=== PATIENT | male | born 1970 | race Two or more races ===

== ENCOUNTER 2020-10-16 16:26 | Emergency (ER) | payer OTHER, MEDICAID ==
[~2020-10-16] VITALS: Ht 165.1 cm; Wt 68.7 kg
[2020-10-16 17:04] LABS: ALBUMIN 3.9 g/dL (3.4-5.0); ANION GAP 5 mmol/L (5-15); CALCIUM 8.8 mg/dL (8.5-10.1); CHLORIDE 109 mmol/L (98-107)
[2020-10-16 17:05] LABS: CREATININE 0.84 mg/dL (0.7-1.3)
[2020-10-16 17:26] LABS: BASOPHILS % (AUTO) 1 % (0-1); EOSINOPHILS % (AUTO) 7 % (1-7); LYMPHOCYTES % (AUTO) 29 % (22-44); MEAN CORPUSCULAR HEMOGLOBIN 29.9 pg (27.5-34.5); MEAN CORPUSCULAR HGB CONC 33.6 g/dL (33.2-36.2); MEAN PLATELET VOLUME 7.8 fL (7.4-10.4); MONOCYTES % (AUTO) 7 % (2-9); NEUTROPHILS % (AUTO) 56 % (42-75); PLATELET COUNT 230 x10^3/uL (130-400); RED BLOOD COUNT 5.48 x10^6/uL (4.38-5.82); RED CELL DISTRIBUTION WIDTH 13.8 % (9.4-14.8)
--- NOTE | 2020-10-16 21:10 | NUR ---
PT IN GOWN IN [facility]; AWAITING ERP. PT INSTRUCTED TO PROVIDE UA WHEN ABLE TO VOID, AND VERBALIZES UNDERSTANDING.
[2020-10-16] MEDS ORDERED: NITROGLYCERIN OINT 2%, 1GM TP ONE ×2 (21:30→21:39)
[2020-10-16] MEDS ORDERED: LABETALOL 5MG/ML, 20ML IVPush ONE (21:30)
[2020-10-16] MEDS ORDERED: LABETALOL 5MG/ML, 20ML ONE (21:38)
[2020-10-16 21:56] LABS: TROPONIN I < 0.015 ng/mL (0.000-0.045)
[2020-10-16 22:05] VITALS: BP 143/95
--- NOTE | 2020-10-16 22:30 | NUR ---
PT D/C WITH D/C SUMMARY AND SCRIPTS. ALL QUESTIONS ANSWERED. PT AMBULATES TO REGISTRATION DESK WITH STEADY GAIT FOR D/C HOME. PT DENIES ANY OTHER NEEDS PERTAINING TO THIS VISIT. PIV D/C WITH TIP INTACT.
== END 2020-10-16 22:40 | disposition home or self-care (01) ==
LOC: ED 22:00
DX: I10 Essential (primary) hypertension (principal); R51.9 Headache, unspecified; R94.31 Abnormal electrocardiogram [ECG] [EKG]
CPT/HCPCS: 36415; 70450; 80048; 82040; 83880; 84484; 85025; 93005; 96374; 99285